=== PATIENT | male | born 2005 ===

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

== ENCOUNTER 2024-01-06 19:36 | Emergency (ER) | payer BC ==
[~2024-01-06] VITALS: Ht 172.7 cm; Wt 77.1 kg
[2024-01-06 19:44] VITALS: BP 133/87
== END 2024-01-06 20:35 | disposition home or self-care (01) ==
LOC: ER 19:36
DX: S93.402A Sprain of unspecified ligament of left ankle, initial encounter (principal); W18.42XA Slipping, tripping and stumbling without falling due to stepping into hole or opening, initial encounter
CPT/HCPCS: 73610; 99283-25